=== PATIENT | male | born 1995 | race Caucasian/White ===

== ENCOUNTER 2023-11-21 13:25 | Emergency (ER) | payer OTHER, SELFPAY ==
[2023-11-21 13:40] VITALS: BP 132/79; PULSE 88; RESP 18; TEMP 37.1; O2SAT 97; BMI 33.6
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
[2023-11-21 16:08] VITALS: BP 128/77; PULSE 81; RESP 16; O2SAT 99
== END 2023-11-21 16:19 | disposition home or self-care (01) ==
PROVIDERS: Emergency Provider Student in an Organized Health Care Education/Training Program
DX: S63.502A Unspecified sprain of left wrist, initial encounter (principal); S66.912A Strain of unspecified muscle, fascia and tendon at wrist and hand level, left hand, initial encounter; V28.09XA Other motorcycle driver injured in noncollision transport accident in nontraffic accident, initial encounter; Y92.410 Unspecified street and highway as the place of occurrence of the external cause
CPT/HCPCS: 29125; 73110; 99283; 99284

== ENCOUNTER 2024-05-25 13:17 | Day surgery (SDC) | payer OTHER, SELFPAY ==
--- NOTE | 2024-05-25 | PATH_ITS ---
[facility] Accession Number: [id number] No. of containers..03 Tissue . 01 Material submitted: . PART A: gastrointestinal site - ANTRUM PART B: esophagus, E-G Junction - GE JUNCTION PART C: esophagus - MID ESOPHAGUS . 01 Diagnosis: A. ANTRUM, BIOPSY: Gastric mucosa with mild chronic inflammation. No Helicobacter pylori organisms identified on immunohistochemical evaluation. No intestinal metaplasia, dysplasia, or malignancy. . B. GE JUNCTION, BIOPSY: Esophageal squamous epithelium with scattered intraepithelial eosinophils (up to 7 per high-power field). See comment. No fungal organisms identified on AB/PAS stain. No dysplasia or malignancy. . C. MID ESOPHAGUS, BIOPSY: Esophageal squamous mucosa with mildly increased intraepithelial eosinophils (up to 28 per high-power field). See comment. No fungal organisms identified on AB/PAS stain with controls staining appropriately. No dysplasia or malignancy. [facility] 05/29/2024 1337 Local . 01 Comment: B-C. The differential diagnosis includes reflux as well as eosinophilic esophagitis given the presence of increased intraepithelial eosinophils in the mid esophagus. Clinical correlation is recommended. . 01 Electronically signed: . Didi Agudelo MD, Pathologist NPI- [id number] . 01 Gross description: . A. Received in formalin with two patient identifiers and antrum biopsy, is a single canseco soft tissue fragment, 0.5 cm in greatest dimension, submitted in A1. B. Received in formalin with two patient identifiers and GE junction, is a single canseco soft tissue fragment, 0.3 cm in greatest dimension, submitted in B1. C. Received in formalin with two patient identifiers and mid esophagus biopsy, are three canseco soft tissue fragments, 0.2 to 0.5 cm in greatest dimension, submitted in C1. ([id number]) /MRV 05/26/2024 2015 Local . 01 Microscopic: . A. An immunohistochemical stain was performed to evaluate for Helicobacter organisms and is negative. The control stain showed appropriate reactivity. . * This test was developed and the performance characteristics were validated by [employer]. It has not been cleared or approved by the U.S. Food and Drug Administration. . 01 Pathologist provided ICD-10: K21.00, K29.70, K20.0, R13.19 . 01 CPT . 658687, 614622, 721475, R69298 Specimen Comment: A courtesy copy of this report has been sent to [phone] Performed at: [address] [address], [place], [place] [id number] MD Louis Stokes MD Phone: [phone]
--- NOTE | 2024-05-25 15:06 | PM.HP.1 ---
History of Present Illness History of Present Illness Date Patient Seen: 05/25/24 Time Patient Seen: 15:07 Chief complaint: EGD Narrative: 28-year-old male with a but year of intermittent dysphagia and odynophagia and chest pain associated mostly with solids. No weight loss. I reviewed the recent note in GI clinic with Jeffery Velez. No significant changes. He presents for diagnostic and potentially therapeutic EGD today. [facility] Social History Smoking Status: Former smoker Meds Home Medications and Allergies Allergies Allergy/AdvReac Type Severity Reaction Status Date / Time No Known Drug Allergies Allergy Verified 05/25/24 15:08 Review of Systems Review of Systems ROS: Yes All systems reviewed with the patient and are negative except as otherwise documented Exam Const General: cooperative HENMT Head: normal to inspection Eyes General: appearance normal, both eyes and all related structures Neck Neck: normal visual inspection Chest Chest: normal inspection of the chest Resp Effort & Inspection: normal respiratory effort Cardio Rate: regular rate GI Inspection: normal to inspection Skin General: no rashes or lesions noted Neuro General: patient alert and patient awake Extrem General: normal to inspection and no pedal edema Psych Appearance: grossly normal Assessment & Plan Assessment & Plan narrative: 28-year-old male with intermittent dysphagia and odynophagia along with chest pain. EGD is pursued today. Time-Based Coding :: [TOTAL MINUTES] spent with patient and on the chart (including review of chart, obtaining history, exam, reviewing outside data, placing orders, documenting exam and treatment plan, and counseling patient) on [DATE].
--- NOTE | 2024-05-25 15:08 | PM.PREOP ---
Pre-operative Note Interval Note History & Physical reviewed/Exam performed by Physician: Yes Changes to H&P: No ASA Class (for procedural sedation): I
[2024-05-25 15:15] VITALS: BP 123/77; PULSE 68; RESP 16; TEMP 36.4; O2SAT 98
--- NOTE | 2024-05-25 16:28 | P.OP.EGD_ITS ---
Operative Date/Time/Diagnoses Date of procedure: 05/25/24 Time of procedure: 16:28 Pre-op diagnosis: Dysphagia, chest pain Post-op diagnosis: same Procedure & Clinicians Study performed: EGD with biopsies Same procedure as scheduled: Yes Indications: Dysphagia chest pain Surgeon: Jean Marie Hilton Procedure Notes SCOAP/Timeout: Done Procedure in detail: After the risks and benefits were explained, written and verbal informed consent was obtained. The patient was brought into the procedure room and placed into the left lateral decubitus position. Please see anesthesia note for sedation details. The scope was introduced into the mouth through the bite block and advanced under direct visualization to the 2nd portion of the duodenum. The scope was slowly withdrawn carefully examining the mucosa for any defects or lesions. Retroflexed views were accomplished in the stomach. The stomach was decompressed, the scope was then removed from the patient who tolerated the procedure well. Sedation minutes: 10 Complications: none Impression: 1. Duodenal: No significant pathology was identified from the bulb through to the 2nd portion. 2. Stomach: No ulcers no mass lesions and no outlet obstruction. The patient had a mild gastropathy characterized by erythematous mucosa in the antrum. Biopsies were acquired for exclusion of H pylori or other pathology. Retroflexed views of the LES were unremarkable. No additional gastric pathology appreciated. 3. Esophagus: The squamocolumnar junction correlated with the top of the gastric folds. The GEJ was at approximately 37 cm from the incisors. The patient had evidence of LA grade C erosive esophagitis at the level of the GE junction. There was also a linear erosion that spanned proximally 3 cm in the mid to lower esophagus. The patient had tightly group circumferential rings all throughout the mid and distal esophagus consistent with the eosinophilic eso phagitis. A biopsy was taken from the GE junction and then a separate set of biopsies was taken from the mid esophagus. Endoscopic diagnosis 1. LA grade C erosive esophagitis 2. Probable eosinophilic esophagitis-histology pending 3. Mild gastropathy Post-procedure Plan for aftercare: 1. Await histology 2. Initiate once daily [id number] omeprazole 20 mg taken 30-60 minutes before the 1st meal of the day on an empty stomach. 3. Follow up in GI clinic with Jeffery Velez. 4. If eosinophilic esophagitis is confirmed, formal allergy assessment would be appropriate. 5. Contingent on response to the omeprazole, surveillance EGD will likely be arranged in the weeks to come. Disposition: PACU
[2024-05-25 16:31] VITALS: BP 111/57; PULSE 75; RESP 16; TEMP 36.1; O2SAT 94
[2024-05-25 16:35] VITALS: BP 111/65; PULSE 70; RESP 16; O2SAT 94
[2024-05-25 16:43] VITALS: BP 117/69; PULSE 82; RESP 14; O2SAT 96
[2024-05-25 16:45] VITALS: BP 124/71; PULSE 65; RESP 14; O2SAT 97
== END 2024-05-25 17:00 | disposition home or self-care (01) ==
PROVIDERS: PCP Student in an Organized Health Care Education/Training Program; Referring Provider Internal Medicine Gastroenterology; Visit Provider Internal Medicine Gastroenterology
PROC: 0DJ08ZZ Inspection of Upper Intestinal Tract, Via Natural or Artificial Opening Endoscopic (ICD-10-PCS; CPT 43239; principal; 2024-05-25 14:30)
DX: K20.80 Other esophagitis without bleeding (principal); K29.50 Unspecified chronic gastritis without bleeding
CPT/HCPCS: 43239; J2704